=== PATIENT | male | born 1985 | race African-American/Black ===

== ENCOUNTER 2018-10-29 11:37 | Day surgery (SDC) | payer OTHER ==
[~2018-10-29] VITALS: Ht 167.6 cm; Wt 77.1 kg
[~2018-10-29 11:37] MED LIST: NS 1,000 ML IV ONE; OMEP20CA3 PO
[2018-10-29] MEDS ORDERED: LIDOCAINE 2% INJ 100 MG/5 ML SDV (FOR ANES.) As Ordered ONE (12:51)
[2018-10-29] MEDS ORDERED: PROPOFOL 200 MG/20 ML VIAL As Ordered ONE (12:51)
--- NOTE | 2018-10-29 14:31 | ROOR ---
Patient Name: Jamie Solis Procedure Date: 10/29/2018 2:12 PM Date of : 1985 Age: 33 Room: [facility] Gender: Male Note Status: Finalized Procedure: Upper GI endoscopy Indications: Heartburn, Hematemesis (resolved hematemesis, but continued intermittent pyrosis. Pt using PPI PRN only) Providers: Reynaldo WILCOX MD Referring MD: GET DEUTSCH MD Requesting Provider: Medicines: Monitored Anesthesia Care Complications: No immediate complications. Procedure: Pre-Anesthesia Assessment: - The heart rate, respiratory rate, oxygen saturations, blood pressure, adequacy of pulmonary ventilation, and response to care were monitored throughout the procedure. The Endoscope was introduced through the mouth, and advanced to the third part of duodenum. The upper GI endoscopy was accomplished without difficulty. The patient tolerated the procedure well. Findings: The examined esophagus was normal. The Z-line was variable and was found 38 cm from the incisors. The entire examined stomach was normal. (a very small/insignificant sliding Hiatal hernia is noted. Biopsies were taken with a cold forceps for Helicobacter pylori testing. Scattered mild inflammation characterized by erythema was found in the first portion of the duodenum. Impression: - Normal esophagus. Z-line variable, 38 cm from the incisors. - Normal stomach. Biopsied. - Minimal duodenitis. Recommendation: - Telephone endoscopist for pathology results in 2 weeks. - Use Prilosec (omeprazole) 20 mg PO daily. (take medication EVERY day for 3 months) Reynaldo Wilcox MD Reynaldo WILCOX MD 10/29/2018 2:30:44 PM This report has been signed electronically. Number of Addenda: 0 Note Initiated On: 10/29/2018 2:12 PM Estimated Blood Loss: Estimated blood loss: none.
[2018-10-29 14:47] VITALS: BP 141/66
== END 2018-10-29 14:54 | disposition home or self-care (01) ==
LOC: M OPP 11:37
PROVIDERS: ATTEND Internal Medicine Gastroenterology
DX: K22.8 Other specified diseases of esophagus (principal); K29.80 Duodenitis without bleeding; R12 Heartburn; K92.0 Hematemesis; K21.9 Gastro-esophageal reflux disease without esophagitis; F17.203 Nicotine dependence unspecified, with withdrawal

== ENCOUNTER → 2022-12-08 | Outpatient (CLI) | payer OTHER ==
[~2022-12-08] MED LIST changes: +ERGO500029 PO; -NS 1,000 ML IV ONE; +OMEP1CAP73 PO; -OMEP20CA3 PO
== END ==
LOC: M LABSMTC 07:37
PROVIDERS: ATTEND Anesthesiology
DX: Z01.812 Encounter for preprocedural laboratory examination (principal)

== ENCOUNTER 2022-12-10 07:53 | Day surgery (SDC) | payer OTHER ==
[~2022-12-10] VITALS: Ht 167.6 cm; Wt 80.6 kg
[~2022-12-10 07:53] MED LIST changes: +NS 1,000 ML IV ONE
[2022-12-10] MEDS ORDERED: fentaNYL 100 MCG/2 ML INJECTION As Ordered ONE (09:02)
[2022-12-10] MEDS ORDERED: propofoL 200 MG/20 ML VIAL As Ordered ONE (09:37)
[2022-12-10] MEDS ORDERED: LIDOCAINE 2% 100MG/5ML SDV (FOR ANES.) As Ordered ONE (09:37)
[2022-12-10] MEDS ORDERED: GLYCOPYRROLATE INJ 0.2 MG/ML 2 ML VIAL As Ordered ONE (09:38)
[2022-12-10 09:55] VITALS: BP 138/83
== END 2022-12-10 09:55 | disposition home or self-care (01) ==
LOC: M OPP 07:53
PROVIDERS: ATTEND Surgery
DX: D12.5 Benign neoplasm of sigmoid colon (principal); K64.4 Residual hemorrhoidal skin tags; K21.00 Gastro-esophageal reflux disease with esophagitis, without bleeding; K22.89 Other specified disease of esophagus; F17.200 Nicotine dependence, unspecified, uncomplicated
CPT/HCPCS: 43239; 45380; 88305; J3010